=== PATIENT | female | born 1970 | race Caucasian/White ===

== ENCOUNTER 2019-11-15 18:49 | Emergency (ER) | payer MEDICAID, OTHER ==
[~2019-11-15] VITALS: Ht 157.5 cm; Wt 71.7 kg
[2019-11-15 18:58] VITALS: BP 142/81
--- NOTE | 2019-11-15 19:02 | NUR ---
Patient ambulated to bed 4. RN evaluating patient at bedside.
--- NOTE | 2019-11-15 19:08 | NUR ---
installation technician at bedside.
--- NOTE | 2019-11-15 19:10 | NUR ---
PA AT BEDSIDE SPEAKING WITH PATIENT
--- NOTE | 2019-11-15 19:11 | NUR ---
MECHANICAL FALL AT HOME--RIGHT WRIST INJURY, OBVIOUS DEFORMITY NOTED +2 RADIAL PULSE <3 SEC CAP REFILL X RAY AT BEDSIDE
[2019-11-15] MEDS ORDERED: KETOROLAC 60 MG/2 ML VIAL IM ONE (19:15)
--- NOTE | 2019-11-15 19:15 | NUR ---
RECEIVED REPORT FROM YOLANDA HARDING FOR CONTINUATION OF PT CARE.
--- NOTE | 2019-11-15 19:50 | NUR ---
X-RAY SHOWS FRACTURE OF RADIUS, EMT AT BEDSIDE PLACING SPLINT AND SLING. CD OF X-RAY SIGNED BY 2 RN'S AND GIVEN TO PA.
--- NOTE | 2019-11-15 19:52 | NUR ---
PT STATES PAIN IS 5-6 AT THIS TIME, IM HELPED WITH PAIN CONTROL.
--- NOTE | 2019-11-15 20:07 | NUR ---
SUGAR TONG WAS PLACED ON PTS RIGHT ARM. SHOULDER SLING WAS ALSO PLACED TO IMOBOLIZE SHOULDER. PTS [facility] [place] WNL.
[2019-11-15 21:02] VITALS: BP 142/81
--- NOTE | 2019-11-15 21:03 | NUR ---
Patient discharged with v/s stable. Written and verbal after care instructions given and explained. Patient alert, oriented and verbalized understanding of instructions. Ambulatory with steady gait. All questions addressed prior to discharge. ID band removed. Patient advised to follow up with PMD. Rx of norco and ibuprofen given. Patient educated on indication of medication including possible reaction and side effects. Opportunity to ask questions provided and answered.
--- NOTE | 2019-11-15 21:03 | NUR ---
pt given copy of x-ray and print out of results to take to pmd in 1-2 days
== END 2019-11-15 21:02 | disposition home or self-care (01) ==
LOC: MED 18:49
DX: S52.501A Unspecified fracture of the lower end of right radius, initial encounter for closed fracture (principal); S52.611A Displaced fracture of right ulna styloid process, initial encounter for closed fracture; Z90.711 Acquired absence of uterus with remaining cervical stump; W19.XXXA Unspecified fall, initial encounter; Y93.A3 Activity, aerobic and step exercise; Y92.89 Other specified places as the place of occurrence of the external cause; Y99.8 Other external cause status
CPT/HCPCS: 29125; 73110; 96372; 99283; J1885

== ENCOUNTER 2023-09-21 16:24 | Emergency (ER) | payer OTHER ==
[~2023-09-21] VITALS: Ht 154.9 cm; Wt 85.3 kg
[2023-09-21 16:32] VITALS: BP 154/78; PULSE 89; RESP 16; TEMP 98.3; O2SAT 100
[2023-09-21] MEDS ORDERED: NAPR-1704 PO (19:48)
[2023-09-21 19:53] VITALS: BP 145/74; PULSE 87; RESP 18; TEMP 98.2; O2SAT 100
== END 2023-09-21 19:53 | disposition home or self-care (01) ==
LOC: MED 16:24
DX: S93.691A Other sprain of right foot, initial encounter (principal); S50.01XA Contusion of right elbow, initial encounter; Z79.899 Other long term (current) drug therapy; W18.2XXA Fall in (into) shower or empty bathtub, initial encounter; Y93.89 Activity, other specified; Y92.89 Other specified places as the place of occurrence of the external cause; Y99.8 Other external cause status
CPT/HCPCS: 73080; 73610; 73630; 99284